=== PATIENT | male | born 1985 | race Caucasian/White ===

== ENCOUNTER 2017-10-21 07:02 | Emergency (ER) | payer OTHER ==
--- NOTE | 2017-10-21 07:13 | ED Physician Documentation ---
PD HPI NVD - Stated complaint Stated Complaint: V/D - Chief complaint Chief Complaint: Abd Pain - History obtained from History obtained from: Patient - History of Present Illness Timing - onset: Last night Timing - duration: Hours (12) Timing - details: Abrupt onset Associated symptoms: Other (diarrhea often last evening and some overnight. Vomiting started during the night into this morning.). No: Fever, Abdominal pain, Near syncope / syncope Contributing factors: Sick contact (his son had similar several days ago, lasted 2 days. Coworkers with similar as well.). No: Bad food, Travel, Recent antibiotics Worsened by: Eating Similar symptoms before: Has not had sx before Recently seen: Not recently seen Review of Systems Constitutional: reports: Myalgias. denies: Fever, Chills Nose: denies: Rhinorrhea / runny nose, Congestion Throat: denies: Sore throat Respiratory: denies: Cough GI: reports: Nausea, Vomiting, Diarrhea. denies: Abdominal Pain, Hematemesis, Bloody / black stool : denies: Dysuria, Frequency Neurologic: reports: Generalized weakness, Headache (mild). denies: Focal weakness, Numbness, Difficulty speaking, Near syncope, Confused, Altered mental status PD PAST MEDICAL HISTORY - Past Medical History Past Medical History: No GI: Other (IBS) - Past Surgical History Past Surgical History: No - Present Medications Home Medications: Ambulatory Orders Medication Instructions Recorded Confirmed raNITIdine [Zantac] 150 mg PO PRN PRN 04/20/17 04/20/17 Diphenoxylate HCl/Atropine 1 each PO Q6H PRN #12 tablet 10/21/17 [Diphenoxylate-Atrop 2.5-0.025] Ondansetron Odt [Zofran] 4 mg TL Q6H PRN #15 tablet 10/21/17 Ranitidine HCl [Acid Psychological [employer] Specialist] 75 mg PO DAILY 10/21/17 10/21/17 - Allergies Allergies/Adverse Reactions: Allergies Allergy/AdvReac Type Severity Reaction Status Date / Time amoxicillin Allergy Unknown Verified 10/21/17 07:10 amphetamine Allergy Unknown Verified 10/21/17 07:10 [From Adderall XR] amphetamine aspartate * Allergy Anaphylaxis Verified 04/20/17 10:16 [From Adderall XR] amphetamine sulfate * Allergy Anaphylaxis Verified 04/20/17 10:16 [From Adderall XR] dextroamphetamine Allergy Unknown Verified 10/21/17 07:10 [From Adderall XR] dextroamphetamine saccharate Allergy Anaphylaxis Verified 04/20/17 10:16 * [From Adderall XR] dextroamphetamine sulfate * Allergy Anaphylaxis Verified 04/20/17 10:16 [From Adderall XR] - Social History Does the pt smoke?: Yes Smoking Status: Current every day smoker - Immunizations Immunizations are current?: Yes PD ED PE NORMAL - Vitals Vital signs reviewed: Yes - General General: Alert and oriented X 3, No acute distress, Well developed/nourished - HEENT HEENT: Ears normal, Pharynx benign. No: Moist mucous membranes - Neck Neck: Supple, no meningeal sign, No adenopathy - Cardiac Cardiac: RRR (mild tachycardic), No murmur - Respiratory Respiratory: Clear bilaterally - Abdomen Abdomen: Normal bowel sounds, Soft, Non tender, Non distended, No organomegaly - Male Male : Deferred - Rectal Rectal: Deferred - Back Back: No CVA TTP - Derm Derm: Normal color, Warm and dry - Neuro Neuro: Alert and oriented X 3, No motor deficit, Normal speech Results - Vitals Vitals: Vital Signs - 24 hr 10/21/17 10/21/17 07:09 08:36 Temperature 36.9 C Heart Rate 100 86 Respiratory 17 14 Rate Blood Pressure 129/97 H 126/81 H O2 Saturation 97 99 Oxygen O2 Source Room air PD MEDICAL DECISION MAKING - ED course Complexity details: re-evaluated patient (improved enough with PO meds and feels okay with going home with Rx. ), considered differential (not feeling lightheaded but generally weak. Shared decision to try oral meds and see if improves oral intake, and if not then to go to IV. ), d/w patient Departure - Departure Disposition: 01 Home, Self Care Clinical Impression: Nausea vomiting and diarrhea, Viral gastroenteritis Condition: Stable Record reviewed to determine appropriate education?: Yes Instructions: ED Gastroenteritis Viral Follow-Up: [facility]ON[facility] Sheets [Provider Group] Prescriptions: Diphenoxylate HCl/Atropine [Diphenoxylate-Atrop 2.5-0.025] 1 each PO Q6H PRN # 12 tablet PRN Reason: Diarrhea Ondansetron Odt [Zofran] 4 mg TL Q6H PRN #15 tablet PRN Reason: Nausea / Vomiting Comments: Small frequent fluids and bland food through the day. Use ondansetron if needed for nausea and vomiting. Lomotil if needed for diarrhea. Tylenol if needed for pains or fevers. Rest at home today and tomorrow. Recheck if not improved over that time. Return sooner if worsening, in particular high fevers , focal abdominal pain, blood in your vomit or diarrhea, notable lightheadedness , other concerns. Forms: Activity restrictions
[2017-10-21] MEDS ORDERED: ONDANSETRON ODT 4 MG TABLET TL STA (07:23)
[2017-10-21] MEDS ORDERED: DIPHENOX/ATROPINE 2.5/0.025 MG TABLET PO STA (07:24)
[2017-10-21 08:37] VITALS: BP 126/81
== END 2017-10-21 08:49 | disposition home or self-care (01) ==
LOC: ED 07:02 → EDBD 07:02 → ED 08:49
DX: A08.4 Viral intestinal infection, unspecified (principal); F17.200 Nicotine dependence, unspecified, uncomplicated
CPT/HCPCS: 99283; A9270; Q0162